=== PATIENT | male | born 1980 | race Hispanic/Latino ===

== ENCOUNTER 2019-04-02 11:27 | Emergency (ER) | payer SELFPAY ==
--- NOTE | 2019-04-02 12:21 | EDPHYS ---
Physician Documentation [facility] Name: Adrien Mooney Age: 38 yrs Sex: Male : 1980 Arrival Date: 04/02/2019 Time: 11:35 Bed 10 Private MD: ED Physician Jcarlos Toney HPI: 04/02 12:23 This 38 yrs old Male presents to ER via Ambulatory with complaints of Ear Pain.kb 12:23 The patient presents with pain, moderate, swelling, tenderness. The complaints affect kb the left ear. Onset: The symptoms/episode began/occurred 1 week(s) ago. Modifying factors: The symptoms are alleviated by nothing, the symptoms are aggravated by touching. Associated signs and symptoms: The patient has no apparent associated signs or symptoms. Severity of symptoms: At their worst the symptoms were moderate in the emergency department the symptoms are unchanged. The patient has not experienced similar symptoms in the past. The patient has not recently seen a physician. Historical: - Allergies: 12:04 No Known Allergies; sr5 - Immunization history:: Adult Immunizations. - Social history:: Smoking status: . - Ebola Screening: : Patient negative for fever greater than or equal to 101.5 degrees Fahrenheit, and additional compatible Ebola Virus Disease symptoms Patient denies exposure to infectious person Patient denies travel to an Ebola-affected area in the 21 days before illness onset No symptoms or risks identified at this time. ROS: 12:23 Constitutional: Negative for fever, chills, and weight loss, Neck: Negative for injury, kb pain, and swelling, Cardiovascular: Negative for chest pain, palpitations, and edema, Respiratory: Negative for shortness of breath, cough, wheezing, and pleuritic chest pain, Abdomen/GI: Negative for abdominal pain, nausea, vomiting, diarrhea, and constipation, Back: Negative for injury and pain, MS/Extremity: Negative for injury and deformity, Skin: Negative for injury, rash, and discoloration, Neuro: Negative for headache, weakness, numbness, tingling, and seizure. 12:23 ENT: Positive for ear pain. Exam: 12:22 Constitutional: This is a well developed, well nourished patient who is awake, alert, kb and in no acute distress. Head/Face: Normocephalic, atraumatic. Neck: Trachea midline, no thyromegaly or masses palpated, and no cervical lymphadenopathy. Supple, full range of motion without nuchal rigidity, or vertebral point tenderness. No Meningismus. Chest/axilla: Normal chest wall appearance and motion. Nontender with no deformity. No lesions are appreciated. Cardiovascular: Regular rate and rhythm with a normal S1 and S2. No gallops, murmurs, or rubs. Normal PMI, no JVD. No pulse deficits. Respiratory: Lungs have equal breath sounds bilaterally, clear to auscultation and percussion. No rales, rhonchi or wheezes noted. No increased work of breathing, no retractions or nasal flaring. Abdomen/GI: Soft, non-tender, with normal bowel sounds. No distension or tympany. No guarding or rebound. No evidence of tenderness throughout. Skin: Warm, dry with normal turgor. Normal color with no rashes, no lesions, and no evidence of cellulitis. MS/ Extremity: Pulses equal, no cyanosis. Neurovascular intact. Full, normal range of motion. Neuro: Awake and alert, GCS 15, oriented to person, place, time, and situation. Cranial nerves II-XII grossly intact. Motor strength 5/5 in all extremities. Sensory grossly intact. Cerebellar exam normal. Normal gait. 12:22 ENT: External ear(s): are unremarkable, Ear canal(s): swelling, that is moderate, of the left canal, TM's: are normal. Vital Signs: 12:04 BP 132 / 80; Pulse 65; Resp 14; Temp 98.3; Pulse Ox 98% on R/A; Pain 10/10; sr5 MDM: 12:05 Patient medically screened. kb 12:20 Data reviewed: vital signs, nurses notes. Data interpreted: Pulse oximetry: on room air kb is 98 %. Interpretation: normal. Counseling: I had a detailed discussion with the patient and/or guardian regarding: the historical points, exam findings, and any diagnostic results supporting the discharge/admit diagnosis, the need for outpatient follow up, a family practitioner, to return to the emergency department if symptoms worsen or persist or if there are any questions or concerns that arise at home. Administered Medications: No medications were administered Disposition: 17:37 Co-signature as Attending Physician, Jcarlos Toney MD. rn Disposition: 04/02/19 12:20 Discharged to Home. Impression: Unspecified otitis externa, left ear. - Condition is Stable. - Discharge Instructions: Otitis Externa, [id number], Ear Drops, Adult, [id number]. - Prescriptions for Cortisporin 3.5- 10,000-1 mg/mL-unit/mL-% Otic solution - instill 4 drop by OTIC route 4 times per day for 7 days; 1 bottle. - Medication Reconciliation Form, Thank You Letter, Antibiotic Education, Prescription Opioid Use form. - Follow up: Emergency Department; When: As needed; Reason: Worsening of condition. Follow up: Private Physician; When: 2 - 3 days; Reason: Recheck today's complaints, Continuance of care, Re-evaluation by your physician. Signatures: Janki Barreto, LEOLA-Michelle AWADP-Jennifer Sevilla, RN Jcarlos Choudhury MD MD rn Resecker, Sam, RN RN sr5 Corrections: (The following items were deleted from the chart) 12:32 12:20 04/02/2019 12:20 Discharged to Home. Impression: Unspecified otitis externa, left iw ear. Condition is Stable. Forms are Medication Reconciliation Form, Thank You Letter, Antibiotic Education, Prescription Opioid Use. Follow up: Emergency Department; When: As needed; Reason: Worsening of condition. Follow up: Private Physician; When: 2 - 3 days; Reason: Recheck today's complaints, Continuance of care, Re-evaluation by your physician. kb
--- NOTE | 2019-04-02 12:21 | ER ---
Nurse's Notes [facility] Name: Adrien Mooney Age: 38 yrs Sex: Male : 1980 Arrival Date: 04/02/2019 Time: 11:35 Bed 10 Private MD: Diagnosis: Unspecified otitis externa, left ear Presentation: 04/02 12:02 Presenting complaint: Patient states: LEFT ear pain x 1 week. Reports decreased hearing sr5 ability. Denies trauma to ear. Transition of care: patient was not received from another setting of care. Onset of symptoms was March 26, 2019. Risk Assessment: Do you want to hurt yourself or someone else? Patient reports no desire to harm self or others. Initial Sepsis Screen: Does the patient meet any 2 criteria? No. Patient's initial sepsis screen is negative. Does the patient have a suspected source of infection? Yes: Other: possible ear infection. Care prior to arrival: None. 12:02 Method Of Arrival: Ambulatory sr5 12:02 Acuity: [id number] 4 sr5 Triage Assessment: 12:04 General: Appears in no apparent distress. Behavior is calm, cooperative. Pain: sr5 Complains of pain in left ear Pain radiates to neck Pain currently is 10 out of 10 on a pain scale. Aggravated by swallowing. EENT: Reports LEFT ear pain, painful swallowing. Neuro: No deficits noted. Cardiovascular: No deficits noted. Historical: - Allergies: 12:04 No Known Allergies; sr5 - Immunization history:: Adult Immunizations. - Social history:: Smoking status: . - Ebola Screening: : Patient negative for fever greater than or equal to 101.5 degrees Fahrenheit, and additional compatible Ebola Virus Disease symptoms Patient denies exposure to infectious person Patient denies travel to an Ebola-affected area in the 21 days before illness onset No symptoms or risks identified at this time. Screenin:00 Abuse screen: Denies threats or abuse. Denies injuries from another. iw 12:30 Nutritional screening: No deficits noted. Tuberculosis screening: No symptoms or risk iw factors identified. Fall Risk None identified. Assessment: 12:15 General: Appears in no apparent distress. Behavior is calm, cooperative. Pain: iw Complains of pain in left ear. Neuro: Level of Consciousness is awake, alert, obeys commands, Oriented to person, place, time, situation, Moves all extremities. Cardiovascular: Patient's skin is warm and dry. Respiratory: Respiratory effort is even, unlabored, Respiratory pattern is regular, symmetrical. Derm: Skin is intact, is healthy with good turgor. Musculoskeletal: Range of motion: intact in all extremities. Vital Signs: 12:04 BP 132 / 80; Pulse 65; Resp 14; Temp 98.3; Pulse Ox 98% on R/A; Pain 10/10; sr5 ED Course: 11:35 Patient arrived in ED. iw 12:03 Jennifer Escalera, RN is Primary Nurse. iw 12:03 Triage completed. sr5 12:04 Arm band placed on right wrist. sr5 12:05 Janki Barreto F[facility]-C is [facility]. kb 12:05 Jcarlos Toney MD is Attending Physician. kb 12:10 Patient has correct armband on for positive identification. iw 12:31 No provider procedures requiring assistance completed. Patient did not have IV access iw during this emergency room visit. Administered Medications: No medications were administered Outcome: 12:20 Discharge ordered by MD. kb 12:31 Discharged to home ambulatory. iw 12:31 Condition: good 12:31 Discharge instructions given to patient, Instructed on discharge instructions, follow up and referral plans. medication usage, Demonstrated understanding of instructions, follow-up care, medications, Prescriptions given X 1. 12:32 Patient left the ED. iw Signatures: Janki Barreto FNP-C FNP-Jennifer Sevilla RN YUE iw Randell Leung RN RN sr5
[2019-04-02 12:47] VITALS: BP 132/80; TEMP 98.3; O2SAT 98
== END 2019-04-02 12:32 | disposition home or self-care (01) ==
LOC: ER 11:27
DX: H60.92 Unspecified otitis externa, left ear (principal)
CPT/HCPCS: 99282